=== PATIENT | male | born 1965 ===

== ENCOUNTER 2024-05-20 13:35 | Outpatient (AMB) | payer OTHER, SELFPAY ==
--- NOTE | 2024-05-20 13:41 | A.OFFVIS_ITS ---
Vital Signs 05/20/24 13:49 Height 5 ft 5 in Weight 164 lb 2 oz BMI 27.3 BP 163/79 H Blood Pressure Location Rt brachial Position Sitting Pulse 77 Pulse Source Pulse Oximeter Pulse Oximetry (%) 96 Oxygen Delivery Method Room Air Intake Visit Reasons: Chronic Back Pain Intake Note: Pain today 11/16 Saw Superintendent Required: No Accompanied by: Self / Same As Patient Allergies No Known Allergies Allergy (Verified 05/20/24 13:45) Medication List - Last Reconciled 05/20/24 by DIAZ Starkey baclofen mg PO 3XD fenofibrate nanocrystallized mg PO DAILY gabapentin mg PO 3XD loratadine mg PO DAILY montelukast mg PO DAILY nitroglycerin 0.4 mg sublingual Q5M PRN omeprazole mg PO DAILY sertraline mg PO DAILY tramadol mg PO HPI HPI Chronic Back Pain: Details: The patient is a 58-year-old male presenting with chronic neck and low back pain and right sided lumbar radiculopathy. Originating 30 years ago, the low back pain has become progressively disabling, radiating to both lower limbs, with noted numbness and tingling in the toes, worse on the right. His condition has been managed with opioid medications such as tramadol, muscle relaxants (baclofen), and neuropathic agents (gabapentin). He reports limited benefit from chiropractic interventions, which he discontinued due to insurance limitations, and has not explored other adjunct therapies like acupuncture or massage therapy. He was previously seen at [facility] and [facility] and completed physical therapy ([id number]) and multiple spine injections with mixed results. Past surgical history is notable for cervical interventions, including a cervical fusion and disc removal, primarily attributed to degenerative changes and past martial arts activities. These interventions have failed to completely alleviate his pain. 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 - Onset and Timing: Chronic, 20 years duration, gradually worsening. - Quality and Character: Sharp, tingling, throbbing, shooting, pinching, pulling, tight, heavy, sore - Primary Location: Lower back - Radiation: Both buttocks, posterior thighs, and down to toes, worse on the right - Exacerbating Factors: Standing, sitting for long periods, walking, muscle tightness in the morning. - Relieving Factors: Brief mention of partial relief from chiropractic intervention. - Interference: Day-to-day activities, including working part-time; significantly impacts sleep, focus, and mood. - Affect: Reports depression related to chronic pain and its impact on daily life and activities. - Analgesia: Current medications include tramadol, gabapentin, baclofen, Tylenol, ibuprofen, and Excedrin; pain management has been challenging with limited success. - Adverse Effects: Reports of increasing tolerance to medications necessitating dose adjustments. - Activities of Daily Living: Severely impaired; unable to remain in one position for long, affects work attendance and productivity. - Aberrant Drug Related Behaviors: No explicit signs noted in the conversation. Oswestry Low Back Disability Index Score=27 (severe disability) [facility] Medical History Right lower lobe pulmonary nodule Obstructive sleep apnea Major depression Hyperlipidemia Chronic low back pain Hong esophagus Surgical History H/O shoulder surgery S/P cervical spinal fusion (~2017) Social History Alcohol intake: current Alcohol intake frequency: a few times a week Alcohol t ype: hard liquor Patient Tobacco Use Status: Current everyday Tobacco user Tobacco use type: Cigarette Cigarettes Per Day: 20 Review of Systems Const Details: - Musculoskeletal: Reports muscle spasms, tightness, and difficulty in movement. - Neurological: Reports numbness and tingling in toes and lower limbs, spasms in neck region. - Psychological: Reports depression and altered mood due to chronic pain. All systems reviewed & are unremarkable except as noted in HPI and below Physical Exam Vital Signs: Last Vital Signs Pulse 77 05/20/24 13:49 BP 163/79 H 05/20/24 13:49 Pulse Ox 96 05/20/24 13:49 Oxygen Delivery Method Room Air 05/20/24 13:49 BMI result Body Mass Index 27.3 General: Appears afebrile. Alert and oriented. Mood and affect appropriate. Follows and participates in conversation appropriately. Respiratory effort is unlabored. No cough. Able to transition from sit to stand unassisted. Ambulates with bilaterally normal heel strike and toe off. General: Yes no CVA tenderness Back/Spine/Pelvis Other: Limited lumbar ROM due to pain. Normal gait. No limping. Can flex forward to 70- 75 degrees and extend to 5-10 degrees before experiencing lumbar pain, moderate to severe pain with lumbar extension and axial rotation and mild to moderate with flexion forward. Demonstrates 5/5 strength of quadriceps bilaterally as well as flexion/dorsiflexion of bilateral feet against resistance. 2+ pedal pulses bilaterally. Straight leg rise with dorsiflexion positive on the right. +2 right and +3 left patellar and +2 achilles reflexes bilaterally. Facet loading test positive bilaterally. Kevin sign, Carter?s, Gaenslen, Pelvic compression and Stinchfield tests are positive bilaterally. No groin pain with I/E hip rotations. Significant paraspinals tenderness mostly on the right mid and lower back. Valsalva maneuver increases low back pain. Back: no CVA tenderness Cervical Spine: cervical muscular tenderness, pain with cervical ROM, Cervical spine scars present, No Cervical spine tenderness and No step off deformity Thoracic/Lumbar Spine: thoracic and lumbar spine normal to inspection, No Thoracic/lumbar spine scar(s), Lasegue's sign positive on the right and localized, pain with thoraco-lumbar ROM, paraspinal muscle tenderness, thoraco- lumbar ROM limited, No thoracic spinal tenderness and lumbar spinal tenderness (L3-S1) Pelvis: buttock tenderness on the right Sacroiliac joints: bilaterally (right>left) tender to palpation Extrem General: Yes capillary refill normal, Yes no clubbing, cyanosis or edema and Yes no calf tenderness Assessment & Plan Assessment & Plan (1) Chronic low back pain: Code(s): M54.50 - Low back pain, unspecified; G89.29 - Other chronic pain Category: Medical (2) Lumbosacral spondylosis: Code(s): M47.817 - Spondylosis without myelopathy or radiculopathy, lumbosacral region Category: Medical (3) Lumbar radiculopathy: Code(s): M54.16 - Radiculopathy, lumbar region Category: Medical Plan I will retrieve the patient's medical records and imaging studies for a comprehensive review. After obtaining pertinent imaging and previous procedures and injections from [facility] and [facility], we will consider non- surgical interventions such as diagnostic vs therapeutic injections and possible spinal cord stimulation for pain management pending psychological evaluation. As a first step, retrieval and assessment of studies will guide next treatment steps focusing on relieving symptoms while assessing appropriateness for advanced therapies like Intracept BVN ablation, SCS or ITDD trials vs implants if indicated. All questions and concerns have been answered and patient agreed with the treatment plan. Follow up as needed. Patient was informed and verbally consented to the use of an ambient scribe for clinic note documentation during this visit. Medications: New lidocaine 5% 1 patch topical DAILY 30 days 30 ea 0RF pain G89.29 - Other chronic pain, M47.817 - Spondylosis without myelopathy or radiculopathy, lumbosacral region, M54.50 - Low back pain, unspecified Patient Instructions: - Obtain medical records from [facility] for [facility]. - Review informational brochures on spinal cord stimulation, Intracept and ITDD procedures. - Follow up with any imaging requests for evaluation. - Consider psychological consultation for assessment around potential spinal cord stimulation options. - Maintain current medication regimen pending further evaluation unless advised otherwise. - Script provided for lidocaine patches for chronic low back pain up to 12 hours per day as needed. Continue baclofen, gabapentin and tramadol as prescribed by your PCP provider. Coding Level of Care Code New Pt Level 4 (41952) Complex EM visit Add On G2211 Diagnoses Chronic low back pain M54.50; G89.29 Lumbosacral spondylosis M47.817 Lumbar radiculopathy M54.16
[2024-05-20 13:49] VITALS: BP 163/79; PULSE 77; O2SAT 96; BMI 27.3
--- OUTSIDE RECORDS SUMMARY | 2024-05-20 15:14 | XMS_ITS | Clinical Summary ---
Author Organization [email or web address] Address [address] [place] [address] Care Team Providers Care Manager Center Name Role Phone Unavailable Primary Care Provider Unavailabl e Allergies No known active allergies Medications gabapentin (Neurontin) 600 MG tablet Take 1 tablet by mouth. 3 Active Fenofibrate 50 MG capsule Take 1 capsule by mouth at bed time. Active sertraline (Zoloft) 50 MG tablet Take 1 tablet by mouth. 3 Active omeprazole (PriLOSEC) [address] capsule Take 20 mg by mouth in the morning. 3 Active nitroglycerin (Nitrostat) 0.[address] 0.4 mg under the tongue. 1 Active Multiple Vitamins-Mineral s (Multivitamin) liquid Active ascorbic acid (Vitamin C) 500 MG ER capsule Active aspirin 81 MG EC tablet Take 1 tablet by mouth at bed time. Active B Complex capsule Active baclofen (Lioresal) 10 MG tablet Take 1 tablet by mouth. 3 Active montelukast (Singulair) 10 MG tablet Take 10 mg by mouth in the morning. 3 Active chlorhexidine (Peridex) 0.12 % solution Use 15ml for rinsing the mouth twice a day for two weeks. 473 mL 3 Active Additional Information Patient not taking.Reported on 07/03/2023 amoxicillin-clav ulanate (Augmentin) 500-125 MG tablet take 1 tablet by oral route every 12 hours for 10 days 2 Active cholecalciferol (Vitamin D-3) 10 MCG (400 UNIT) capsule Active Cyanocobalamin 1000 MCG/ML liquid Active gabapentin (Neurontin) 100 MG capsule Take 3 capsules by mouth every 8 (eight) hours. Active ibuprofen 600 MG tablet Take 1 tablet by mouth in the morning and 1 tablet at noon and 1 tablet in the evening. Active LORazepam (Ativan) 2 MG/ML concentrated solution Take 0.5 mL by mouth every 8 (eight) hours. Active magnesium gluconate 550 MG tablet Active omeprazole (PriLOSEC) [address] capsule Take 2 capsules by mouth at bed time. Active traMADol ER (Conzip) 300 MG 24 hr capsule Take 1 capsule by mouth at bed time. Active Active Problems No known active problems Encounters Date Type Department Care Team Description 03/25/2024 1:30 PM EST Office Visit [facility] [address] [place] [address] Stephani Lucas DMD 02/26/2024 3:30 PM EST Office Visit [facility] [address] [place] [address] Stephani Lucas DMD from Last 3 Months Social History Tobacco Use Types Packs/Day Years Used Date Smoking Tobacco: Every Day Cigarettes Passive Smoke Exposure: Never Smokeless Tobacco: Never Tobacco Cessation:Ready to Q uit: Not Asked; Counseling Given: Not Answered Alcohol Use Standard Drinks/Week Comments Defer 0 (1 standard drink = 0.6 oz pur e alcohol) Sex and Gender Information Value Date Recorded Sex Assigned at Male 01/06/2022 10:38 AM EDT Legal Sex Male 10:38 AM EDT Gender Identity Male 01/06/2022 10:38 AM EDT Sexual Orientation Don't know 01/06/2022 10 :38 AM EDT Last Filed Vital Signs Vital Sign Reading Time Taken Comments Blood Pressure 154/100 03/25/2024 1:40 PM EST Pulse 60 12/16/2023 2:18 PM EDT Temperature - - Respiratory Rate - - Oxygen Saturation - - Inhaled Oxygen Concentration - - Weight - - Height - - Body Mass Index - - Plan of Treatment Upcoming Encounters Date Type Department Care Team (Late st Contact Info) Description 06/17/2024 1:00 PM EDT Office Visit [facility] [address] [place] [address] Danielle Brothers Health Maintenance Due Date Last Done Comments CT Colonography 1964 Colonoscopy 1964 Colorectal Cancer Screening 1964 Depression Screening 1964 FIT DNA/Cologuard 1964 FIT 1964 FOBT 1965 HIV Screening 1965 Lipid Panel 1965 SDOH Screening 1965 Sigmoidoscopy 1964 Alcohol/Substance Use Screening 1976 Hepatitis C Screening 1982 Pneumococcal Vaccine: 50+ Years (1 of 2 - PCV) 08/19/1983 Zoster Vaccines (2 of 2) 11/03/2017 09/08/2017 COVID-19 Vaccine (3 - season) 2023 10/25/2020, 10/04/2020 Influenza Vaccine (#1) 2023 02/06/2014 DTaP/Tdap/Td Vaccines (4 - Td or Tdap) 02/07/2024 02/06/2014, 06/19/2013, 11/01/2007, Additional history exists Dental X-Ray: Bitewings 05/14/2024 05/14/19, 02/25/2023, 09/11/2022, Additional history exists Dental Oral Exam 06/16/2024 12/16/2023, 09/2023, 09/11/2022, Additional history exists Dental Prophylaxis 06/16/2024 12/16/2023, 09/11/2022 Dental X-Ray: Full Mouth 07/05/2024 07/04/2021 Tobacco Screening 03/25/2025 03/25/2024 RSV Patients and Patients Aged 60 years or older (1 - 1-dose 75+ series) 08/19/2039 Hepatitis B Vaccines Completed 08/28/2005, 04/01/2005, 03/04/2005 HIB Vaccines Aged Out No longer eligi ble based on patient's age to complete this topic HPV Vaccines Aged Out No longer eligi ble based on patient's age to complete this topic Hepatitis A Vaccines Aged Out No long er eligible based on patient's age to complete this topic IPV Vaccines Aged Out No longer eligi ble based on patient's age to complete this topic Meningococcal Vaccine Aged Out No rodney casey eligible based on patient's age to complete this topic RSV under 20 months Aged Out No longe r eligible based on patient's age to complete this topic Rotavirus Vaccines Aged Out No longer eligible based on patient's age to complete this topic Procedures Procedure Name Priority Date/Time Associated Diagnosis Comments CASE PRESENTATION, DETAILED AND EXTENSIVE TREATMENT PLANNING Routine 03/25/2024 1:30 PM EST 20 B(V) RESIN-BASED COMPOSITE - 1 SURF, POSTERIOR Routine 03/25/2024 1:30 PM EST CASE PRESENTATION, DETAILED AND EXTENSIVE TREATMENT PLANNING Routine 02/26/2024 3:30 PM EST DENTURE ADJUSTMENT Routine 02/26/2024 3: 30 PM EST PROPHYLAXIS - ADULT Routine 12/16/2023 2 :00 PM EDT Dental calculus PERIODIC ORAL EVALUATION - ESTABLISHED PATIENT Routine 12/16/2023 2:00 PM EDT BITEWINGS - 4 RADIOGRAPHIC IMAGES Routine 05/14/2023 2:30 PM EST INTRAORAL - COMPLETE SERIES OF RADIOGRAPHIC IMAGES Routine 07/04/2021 12:00 AM EDT from Last 3 Months or Most Recently Relevant to Health Maintenance Insurance [facility]
--- OUTSIDE RECORDS SUMMARY | 2024-05-20 15:14 | XMS_ITS | Encounter Summary ---
Author Organization [employer] Address [address] [place] [address] Care Team Providers Care Thread Pulling Machine Attendant Name Role Phone Unavailable Primary Care Provider Unavailabl e Encounter Details Date Type Department Care Team (Latest Contact Info) Description 10/02/2021 Abstract [facility] CONVERSIONS Dental, Provider, DDS Social History Tobacco Use Types Packs/Day Years Used Date Smoking Tobacco: Never Assessed Sex and Gender Information Value Date Recorded Sex Assigned at Male 01/06/2022 10:38 AM EDT Legal Sex Male 10:38 AM EDT Gender Identity Male 01/06/2022 10:38 AM EDT Sexual Orientation Don't know 01/06/2022 10 :38 AM EDT documented as of this encounter Plan of Treatment Upcoming Encounters Date Type Department Care Team (Late st Contact Info) Description 06/17/2024 1:00 PM EDT Office Visit [facility] [address] [place] [address] Danielle Brothers documented as of this encounter Visit Diagnoses Not on filedocumented in this encounter
--- OUTSIDE RECORDS SUMMARY | 2024-05-20 15:14 | XMS_ITS | Encounter Summary ---
Author Organization [employer] Address [address] [place] [address] Care Team Providers Care Electrical Machinist Name Role Phone Unavailable Primary Care Provider Unavailabl e Reason for Visit * Reason Onset Date Comments Med Refill 08/14/2022 Encounter Details Date Type Department Care Team (Late st Contact Info) Description 08/14/2022 Telephone C [facility] [address] [place] [address] Sandra Marti DDS Med Refill Social History Tobacco Use Types Packs/Day Years Used Date Smoking Tobacco: Every Day Cigarettes Alcohol Use Standard Drinks/Week Comments Yes 0 (1 standard drink = 0.6 oz pur e alcohol) Sex and Gender Information Value Date Recorded Sex Assigned at Male 01/06/2022 10:38 AM EDT Legal Sex Male 10:38 AM EDT Gender Identity Male 01/06/2022 10:38 AM EDT Sexual Orientation Don't know 01/06/2022 10 :38 AM EDT COVID-19 Exposure Response Date Recorded In the last 10 days, have yo u been in contact with someone who was confirmed or suspected to have Coronavirus/COVID-19? No / Unsure 07/30/2022 11:34 AM EDT documented as of this encounter Miscellaneous Notes * Telephone Encounter - Concepcion Feliciano - 08/22/2022 12:47 PM EDT Humberto states that script for more antibiotics was sent to the pharmacy but nothing for the pain and he is still experiencing pain. Can new script for pain be sent? * Telephone Encounter - Gia Rubio - 08/14/2022 2:53 PM EDT Humberto ARNDT 1965 Patient was seen on 07/30/22 for emergency visit and also seen colin perez same day for extraction but patient stated that he finshed all antibiotic and still feels likethe infection is still there I advise the patient to call in the morning for a emergency visit because he is still experiencing pain he also stated if ibuprofen can be sent to the pharmacy for the pain please advise . documented in this encounter Plan of Treatment Upcoming Encounters Date Type Department Care Team (Late st Contact Info) Description 06/17/2024 1:00 PM EDT Office Visit [facility] [address] [place] [address] Danielle Brtohers documented as of this encounter Visit Diagnoses Not on filedocumented in this encounter
== END 2024-05-20 14:29 | disposition home or self-care (01) ==
PROVIDERS: PCP Internal Medicine; Visit Provider Nurse Practitioner Family
DX: M54.50 Low back pain, unspecified (principal); G89.29 Other chronic pain; M47.817 Spondylosis without myelopathy or radiculopathy, lumbosacral region; M54.16 Radiculopathy, lumbar region
CPT/HCPCS: 99204; G2211

== ENCOUNTER → 2024-05-20 13:35 | Outpatient (BNVA) | payer OTHER, SELFPAY | PROVIDERS: PCP Internal Medicine; Visit Provider Nurse Practitioner Family | DX: M54.50 Low back pain, unspecified (principal); M47.817 Spondylosis without myelopathy or radiculopathy, lumbosacral region; M54.16 Radiculopathy, lumbar region; G89.29 Other chronic pain | CPT/HCPCS: 99202 ==